=== PATIENT | male | born 1960 | race Caucasian/White ===

== ENCOUNTER 2018-11-12 11:26 | Emergency (ER) | payer OTHER ==
[~2018-11-12] VITALS: Ht 190.5 cm; Wt 140.6 kg
[2018-11-12] MEDS ORDERED: LOSARTAN POTASS25 MG (11:51)
[2018-11-12] MEDS ORDERED: LOSARTAN-HCTZ1 EAC1 (11:51)
[2018-11-12] MEDS ORDERED: GLIMEPIRIDE1 MG (11:51)
== END 2018-11-12 15:22 | disposition home or self-care (01) ==
LOC: ER 11:26
DX: K80.20 Calculus of gallbladder without cholecystitis without obstruction (principal); R10.11 Right upper quadrant pain

== ENCOUNTER 2019-03-17 05:31 | Day surgery (SDC) | payer OTHER ==
[~2019-03-17 05:31] MED LIST: GLIMEPIRIDE1 MG; LOSARTAN POTASS25 MG; LOSARTAN-HCTZ1 EAC1
[2019-03-17] MEDS ORDERED: ZANTAC300 MG PO (09:39)
[2019-03-17] MEDS ORDERED: ULTRACET PO (09:39)
[2019-03-17] MEDS ORDERED: KEFLEX500 MG PO (09:39)
== END 2019-03-17 11:25 | disposition home or self-care (01) ==
LOC: CIR.AMB 05:31
DX: K80.10 Calculus of gallbladder with chronic cholecystitis without obstruction (principal); K66.0 Peritoneal adhesions (postprocedural) (postinfection)